=== PATIENT | female | born 1990 | race Two or more races ===

== ENCOUNTER 2018-07-15 21:13 | Emergency (ER) | payer MEDICAID ==
[~2018-07-15] VITALS: Ht 170.2 cm; Wt 54.4 kg
[2018-07-15] MEDS ORDERED: IPRATROPIUM BROM 0.5 MG/2.5ML INH SOL NEB ONE (22:45)
[2018-07-15] MEDS ORDERED: ALBUTEROL SULF 2.5 MG/0.5ML(0.5%) NEB SOLN NEB ONE (22:45)
[2018-07-15 23:30] VITALS: BP 124/89
== END 2018-07-16 00:21 | disposition home or self-care (01) ==
LOC: ER 21:13 → EDBD 21:13 → ER 07-16 00:21
DX: J45.901 Unspecified asthma with (acute) exacerbation (principal); F17.210 Nicotine dependence, cigarettes, uncomplicated; F12.10 Cannabis abuse, uncomplicated
CPT/HCPCS: 71046; 94640; 99284; J7611; J7644